=== PATIENT | female | born 1965 | race Two or more races ===

== ENCOUNTER 2018-01-22 22:11 | Emergency (ER) | payer OTHER ==
[~2018-01-22] VITALS: Ht 154.9 cm; Wt 70.3 kg
[2018-01-22 22:20] VITALS: BP 145/96
[2018-01-22 23:02] LABS: APPEARANCE,URINE CLOUDY (CLEAR); BILIRUBIN,URINE NEGATIVE (NEGATIVE); BLOOD, URINE 3+ Ery/uL (NEGATIVE); COLOR,URINE YELLOW (YELLOW); KETONES,URINE TRACE (NEGATIVE); LEUKOCYTE ESTERASE ,URINE 1+ (NEGATIVE); NITRITE, URINE POSITIVE (NEGATIVE); PROTEIN,URINE 1+ mg/dl (NEGATIVE); UGLUCOSE NEGATIVE (NEGATIVE); UROBILINOGEN,URINE 0.2 EU/dL (0.2)
[2018-01-22 23:12] LABS: CALCIUM, SERUM 9.8 mg/dL (8.5-10.1); POTASSIUM 4.2 mmol/L (3.5-5.1)
[2018-01-22 23:16] LABS: BASOPHILS # (AUTO) 0.1 /CMM (0.0-0.2); BASOPHILS % (AUTO) 0.4 % (0.0-2.0); EOSINOPHILS % (AUTO) 0.1 % (0.0-6.0); HEMATOCRIT 40 % (33-45); HEMOGLOBIN 13.4 g/dL (11.5-14.8); LYMPHOCYTES # (AUTO) 2.3 /CMM (0.8-4.8); LYMPHOCYTES % (AUTO) 17.8 % (20.0-44.0); MEAN CORPUSCULAR HGB CONC 34 g/dl (31.0-36.0); MEAN CORPUSCULAR VOLUME 91 fL (82-100); MONOCYTES % (AUTO) 0.4 % (2.0-12.0); NEUTROPHILS # (AUTO) 10.5 /CMM (1.8-8.9); NEUTROPHILS % (AUTO) 81.3 % (43.0-81.0); PLATELET COUNT (AUTO) 411 /CMM (150-450); RDW COEFFICIENT OF VARIATION 13.7 (11.5-15.0); RED BLOOD CELL COUNT(AUTO) 4.38 MIL/uL (4.0-5.2)
[2018-01-22 23:22] LABS: BACTERIA,URINE Many /HPF (None Seen); RBC,URINE 21-50 /HPF (0-2); SQUAMOUS EPITHELIAL CELL,UR Few /HPF (None Seen); WBC,URINE 51-80 /HPF (0-3)
--- NOTE | 2018-01-22 23:23 | NUR ---
spoke with brock at [facility]. faxed facesheet and labs to [phone]
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
== END 2018-01-22 23:51 | disposition left against medical advice (07) ==
LOC: ER 22:17
DX: F20.9 Schizophrenia, unspecified (principal); F31.9 Bipolar disorder, unspecified; J45.909 Unspecified asthma, uncomplicated; Z88.0 Allergy status to penicillin; Z86.19 Personal history of other infectious and parasitic diseases; R82.99 Other abnormal findings in urine
CPT/HCPCS: 36415; 80048-TC; 80305; 81000-TC; 85025-TC; 87086-TC; 87186-TC; A4606; Z7610

== ENCOUNTER 2020-08-13 13:36 | Emergency (ER) | payer OTHER ==
[~2020-08-13] VITALS: Ht 154.9 cm; Wt 63.5 kg
[2020-08-13 13:57] VITALS: BP 153/106
[2020-08-13 14:30] LABS: BASOPHILS # (AUTO) 0.1 /CMM (0.0-0.2); EOSINOPHILS % (AUTO) 0.1 % (0.0-6.0); HEMOGLOBIN 13.7 g/dL (11.5-14.8)
[2020-08-13 14:32] LABS: BILIRUBIN,URINE SMALL (NEGATIVE); COLOR,URINE YELLOW (YELLOW); LEUKOCYTE ESTERASE ,URINE Negative (NEGATIVE); NITRITE, URINE Negative (NEGATIVE); PH,URINE 5.5 (5.0-8.0); PROTEIN,URINE 100 mg/dl (NEGATIVE); UGLUCOSE Negative (NEGATIVE); UROBILINOGEN,URINE 0.2 EU/dL (0.2)
[2020-08-13 14:34] LABS: BASOPHILS % (AUTO) 0.7 % (0.0-2.0); HEMATOCRIT 41 % (33-45); LYMPHOCYTES # (AUTO) 2.8 /CMM (0.8-4.8); LYMPHOCYTES % (AUTO) 21.9 % (20.0-44.0); MEAN CORPUSCULAR HGB CONC 34 g/dl (31.0-36.0); MEAN CORPUSCULAR VOLUME 94 fL (82-100); NEUTROPHILS # (AUTO) 8.8 /CMM (1.8-8.9); NEUTROPHILS % (AUTO) 69.3 % (43.0-81.0); PLATELET COUNT (AUTO) 383 /CMM (150-450); RED BLOOD CELL COUNT(AUTO) 4.32 MIL/uL (4.0-5.2); WHITE BLOOD COUNT (AUTO) 12.7 K/uL (4.3-11.0)
[2020-08-13 14:37] LABS: CALCIUM, SERUM 9.8 mg/dL (8.5-10.1); CREATININE 1.2 mg/dL (0.6-1.3); POTASSIUM 3.7 mmol/L (3.5-5.1)
[2020-08-13 14:43] LABS: ALBUMIN 4.4 g/dL (3.4-5.0); BILIRUBIN,DIRECT 0.1 mg/dL (0.0-0.2); BILIRUBIN,TOTAL 0.4 mg/dL (0.2-1.0); TOTAL PROTEIN, SERUM 8.4 g/dL (6.4-8.2)
[2020-08-13 14:44] LABS: BACTERIA,URINE Few /HPF (None Seen)
[2020-08-13 14:48] LABS: WBC,URINE 0-2 /HPF (0-3)
--- NOTE | 2020-08-13 14:49 | NUR ---
covid swab collected and sent to lab
[2020-08-13] MEDS ORDERED: ACETAMINOPHEN 325 MG TABLET ONE (15:56)
[2020-08-13] MEDS ORDERED: ACETAMINOPHEN 325 MG TABLET PO ONE (16:00)
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
--- NOTE | 2020-08-13 16:38 | NUR ---
received a call from the lab regarding covid 19 reuslt "negative".
--- NOTE | 2020-08-13 16:52 | NUR ---
SINDHU faxed clinicals to [facility] Intake [phone]. SINDHU also notified Brennen [phone] regarding this referral. SINDHU remains available for all needs regarding this patient.
--- NOTE | 2020-08-13 16:53 | NUR ---
SW provided the following resources to this patient: Hygiene: [facility]: [address] [place] ; [facility] [address] [facility] ; [facility] [address] [facility] . Food Resources: [place] [facility] at [facility]- [address] [place]; Meet Each Need with [facility] ([facility]) [address] [facility]; [facility] [address] [place]; [facility] [address] [place]. Mental Health resources provided: [facility] [address] [place], [place] [address] ; [facility] [place] [address] [facility] [address], [place], [place] [id number] ; [facility] [address] [facility] [place], [place] [id number] ; [facility] [address] [place], [place] [id number] Healthcare Clinics: [facility] [address] [facility], [address] [place]. [place] ; [facility] [address] [facility] [address] [place] [address]; [facility] [address] [facility]. [place] [phone] Winter Shelters: [facility] [place] [facility] [address] [place] [address] ; [facility] [place] [facility] [address] [place], [address] ; [facility] [place] ; [facility] [facility] [place] [address]onte Hunter [address] [address] ; [employer] [facility] [place] [address] [place], [address] ; [facility] [address] [facility] [address] ; First To Serve* [facility] [address] [facility], [address] ; [facility] [address], [id number] ; [facility] [address], [phone] ; [facility] [address] [place], [id number] ; [facility] [address], [address] ; [facility] [address], [address] ; [facility] [address] [place] [address] , [phone] ; [facility] [place] * Library [address], [place] [phone]
--- NOTE | 2020-08-13 18:21 | NUR ---
CALLED [facility] INTAKE THEY WILL CALL US IN 10 MINS ONCE BED HAS BEEN ASSIGNED.
--- NOTE | 2020-08-13 18:59 | NUR ---
PT ACCEPTED AT [facility] UNDER THE CARE OF DR. GOULD AND DR. LAM. CALL [phone] FOR REPORT.
--- NOTE | 2020-08-13 19:09 | NUR ---
CALLED TRANSPORT ETA 60 MINS.
--- NOTE | 2020-08-13 19:56 | NUR ---
TRANSPORT AT BEDSIDE REPORT GIVEN TO EMT.
== END 2020-08-13 19:56 ==
LOC: ER 13:41
DX: R45.851 Suicidal ideations (principal); F15.10 Other stimulant abuse, uncomplicated; F10.10 Alcohol abuse, uncomplicated; Y90.0 Blood alcohol level of less than 20 mg/100 ml; S31.119D Laceration without foreign body of abdominal wall, unspecified quadrant without penetration into peritoneal cavity, subsequent encounter; X78.1XXD Intentional self-harm by knife, subsequent encounter; Z20.822 Contact with and (suspected) exposure to COVID-19; Z88.0 Allergy status to penicillin; F31.9 Bipolar disorder, unspecified; J45.909 Unspecified asthma, uncomplicated; Z86.19 Personal history of other infectious and parasitic diseases
CPT/HCPCS: 36415; 80048; 80076; 80299; 80307; 80320; 81001; 85025; 87426; 99285; C9803; G0480

== ENCOUNTER 2021-01-20 10:25 | Emergency (ER) | payer OTHER ==
[~2021-01-20] VITALS: Ht 154.9 cm; Wt 63.5 kg
[2021-01-20 10:34] VITALS: BP 135/81
[2021-01-20] MEDS ORDERED: OMEP20TA20 PO (11:17)
[2021-01-20] MEDS ORDERED: ALBU8.5H8 INH (11:17)
--- NOTE | 2021-01-20 11:36 | NUR ---
Patient discharged to home in stable condition. Written and verbal after care instructions given. Patient verbalizes understanding of instruction.
== END 2021-01-20 11:36 | disposition home or self-care (01) ==
LOC: ER 10:34
DX: Z76.0 Encounter for issue of repeat prescription (principal); J45.909 Unspecified asthma, uncomplicated; F32.9 Major depressive disorder, single episode, unspecified; Z88.0 Allergy status to penicillin